=== PATIENT | male | born 1990 | race Caucasian/White ===

== ENCOUNTER → 2024-03-29 09:54 | Outpatient (REF) | payer BC, SELFPAY | LOC: RAD 09:54 | PROVIDERS: ATTENDING PHYSICIAN Internal Medicine Cardiovascular Disease; FAMILY PHYSICIAN Family Medicine | DX: I10 Essential (primary) hypertension (principal); E78.5 Hyperlipidemia, unspecified; R73.03 Prediabetes; R00.0 Tachycardia, unspecified | CPT/HCPCS: 75574; Q9967 ==